=== PATIENT | female | born 1955 | race Caucasian/White ===

== ENCOUNTER → 2020-07-10 13:16 | Outpatient (CLI) | payer MEDICARE, SELFPAY ==
--- NOTE | ~2020-07-10 | MM_ITS ---
EXAMINATION: MM screening mihir BI w vernon HISTORY: Screening TECHNIQUE: Craniocaudal and mediolateral oblique 3-D tomosynthesis images were obtained and synthetic 2-D images were generated. CAD analysis was submitted and interpreted. COMPARISON: Comparison to multiple prior studies sequentially, with oldest reviewed study dated 05/14. BREAST PARENCHYMAL COMPOSITION: The breasts are heterogeneously dense, which may obscure small masses . FINDINGS: There is no evidence of suspicious mass, calcification, or architectural distortion to sugg est malignancy in either breast. There has been no suspicious interval change. IMPRESSION: 1. No mammographic evidence of malignancy. 2. Recommend routine screening mammography in one year. BI-RADS Category 1: Negative Reviewed, dictated and finalized at location A. 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
--- NOTE | ~2020-07-10 | DEXA_ITS ---
Bone Density Report Name: Yajaira Villanueva Age: 65 Sex: Female Ethnicity: White Date of : 1955 Indication: monitoring treatment; height loss; hysterectomy; postmenopausal Referring Provider: SOCO BURDEN Study: Bone densitometry was performed. Exam Date: July 10, 2020 Accession number: [id number] Bone Density: Region BMD T-score Z-score Classification AP Spine (L1-L4) 1.213 1.5 3.4 Normal Femoral Neck (Left) 0.870 0.2 1.8 Normal Total Hip (Left) 0.938 0.0 1.3 Normal Femoral Neck (Right) 0.872 0.2 1.8 Normal Total Hip (Right) 0.935 -0.1 1.3 Normal Total Hip Mean 0.937 -0.1 1.3 Normal World Health Organization criteria for BMD impression classify patients as: Normal (T-score at or above -1.0), Osteopenia (T-score between -1.0 and -2.5), or Osteoporosis (T-score at or below -2.5). 10-year Fracture Risk: FRAX not reported because: All T-scores for Spine Total, Hip Total, Femoral Neck at or above -1.0 Treated for osteoporosis Previous Exams: Region Exam Age BMD T-score BMD Change BMD Change Date g/cm2 vs Baseline vs Previous AP Spine(L1-L4) 07/10/2020 65 1.213 1.5 0.146 0.047 05/18/2017 62 1.166 1.1 0.099* 0.038* 02/23/2014 59 1.128 0.7 0.061* 0.040* 11/07/2010 55 1.088 0.4 0.021 0.021 09/14/2006 51 1.067 0.2 Total Hip(Left) 07/10/2020 65 0.938 0.0 0.067 0.014 05/18/2017 62 0.924 -0.1 0.053* -0.025 02/23/2014 59 0.949 0.1 0.078* 0.068* 11/07/2010 55 0.881 -0.5 0.010 0.010 09/14/2006 51 0.871 -0.6 Total Hip(Right) 07/10/2020 65 0.935 -0.1 0.051 0.010 05/18/2017 62 0.925 -0.1 0.041* -0.012 02/23/2014 59 0.937 0.0 0.053* 0.058* 11/07/2010 55 0.878 -0.5 -0.005 -0.005 09/14/2006 51 0.884 -0.5 *Denotes significance at 95% confidence level, LSC for AP Spine = 0.022 g/cm2, LSC for Total Hip = 0.027 g/cm2 Clinical Information Provided by Patient: Is being treated for osteoporosis Has used the following medications: HRT (i.e. estrogen/hormone therapy), Vitamin D, Calcium, MTV Has the following medical conditions: Hysterectomy Patient maximum height was 64.0 Menopause Age: 47 No regular weight bearing exercise Does not regularly consume dairy products Drinks caffeinated beverages Onset of menses at a
== END ==
PROVIDERS: PCP Internal Medicine; Visit Provider Obstetrics & Gynecology Gynecology
DX: Z12.31 Encounter for screening mammogram for malignant neoplasm of breast (principal); Z78.0 Asymptomatic menopausal state
CPT/HCPCS: 77063; 77067; 77080

== ENCOUNTER → 2021-07-13 10:30 | Outpatient (CLI) | payer MEDICARE, SELFPAY ==
--- NOTE | ~2021-07-13 | MM_ITS ---
EXAMINATION: MM screening mihir BI w vernon HISTORY: Screening TECHNIQUE: Craniocaudal and mediolateral oblique 3-D tomosynthesis images were obtained and synthetic 2-D images were generated. CAD analysis was submitted and interpreted. COMPARISON: Comparison to multiple prior studies sequentially, with oldest reviewed study dated 05/14. BREAST PARENCHYMAL COMPOSITION: The breasts are heterogeneously dense, which may obscure small masses . FINDINGS: Stable benign-appearing mass upper outer quadrant of the left breast. There is no evidence of suspicious mass, calcification, or architectural distortion to suggest malignancy in either breast . There has been no suspicious interval change. IMPRESSION: 1. No mammographic evidence of malignancy. 2. Recommend routine screening mammography in one year. BI-RADS Category 2: Benign finding(s). Reviewed, dictated and finalized at location A. RAL CAR CHAUFFEUR
== END ==
PROVIDERS: PCP Internal Medicine; Visit Provider Obstetrics & Gynecology Gynecology
DX: Z12.31 Encounter for screening mammogram for malignant neoplasm of breast (principal)
CPT/HCPCS: 77063; 77067

== ENCOUNTER 2022-07-12 01:47 | Day surgery (SDC) | payer MEDICARE, SELFPAY ==
[2022-06-24 14:08] VITALS: BMI 33.3
[2022-07-12 08:27] VITALS: BP 127/86; PULSE 86; RESP 20; TEMP 36.5; O2SAT 100; BMI 32.7
[2022-07-12] MEDS: LACTATED RINGERS 1,000 ML 150 ML IV CONT (08:36)
--- NOTE | 2022-07-12 09:01 | P.PNAN_ITS ---
Anes - Initial Pre Proc Eval Procedure: Operation Date: 07/12/22 09:30 Proposed Procedures p Screening Colonoscopy - Silvestre Verdugo MD Date/Time: 07/12/22 09:01 Surgeon: Silvestre Verdugo MD Pre Op Diagnosis: hx colon polyps Patient Data Age: 67 Gender: F Height: 1.6 m Weight: 83.8 kg Last Vital Signs Temp 97.7 F 07/12/22 08:27 Pulse 86 07/12/22 08:27 Resp 20 07/12/22 08:27 BP 127/86 07/12/22 08:27 Pulse Ox 100 07/12/22 08:27 O2 Del Method Room Air 07/12/22 08:27 Allergies Allergy/AdvReac Type Severity Reaction Status Date / Time No Known Allergies Allergy Verified 07/12/22 08:25 Home Medications Medication Instructions Recorded Confirmed Type amlodipine 5 mg tablet 5 mg PO BID 06/24/22 07/12/22 History calcium 600 mg capsule 600 mg PO DAILY 06/24/22 07/12/22 History coQ10 (ubiquinol) 100 mg capsule 50 mg PO HS 06/24/22 07/12/22 History ergocalciferol (vitamin D2) 1,250 1,250 mcg PO DIRECTED 06/24/22 07/12/22 History mcg (50,000 unit) capsule estradiol 1 mg tablet 1 mg PO DAILY 06/24/22 07/12/22 History zwbfyvku-etl-csfpu ac 400 1 tablet PO DAILY 06/24/22 07/12/22 History mcg-calcium carb 500 mg-vit K1 20 mcg tablet potassium chloride 10 mEq 10 meq PO DAILY 06/24/22 07/12/22 History tablet,extended release rosuvastatin 5 mg tablet 5 mg PO HS 06/24/22 07/12/22 History spironolactone 50 mg tablet 50 mg PO DAILY 06/24/22 07/12/22 History Patient hx anesthesia problems: none Family hx anesthesia problems: none Results Review: All pre-operative results and documents have been reviewed as part of the pre- operative evaluation. [facility] Family History Family History (Updated 12/28/18 @ 09:32 by DOCTOR UNKNOWN) Sibling Depression Family history of alcoholism Mother Cerebrovascular accident Hypertension Family history of cardiovascular disease Father Family history of hearing loss Family history of cardiovascular disease Other Family history of irritable bowel syndrome Social History Social History Smoking status: Never smoker Alcohol intake: never Substance use type: does not use Living arrangements: with family Spiritual care concerns: No Anes - Eval Final PreProcedure Day of Procedure 07/12/22 09:01 Patient weight: obese Heart: regular rate and rhythm Lungs: clear to auscultation Airway: Mallampati scale class II Neurological: alert and oriented Last oral intake: >/= 8 hours ASA classification: II Emergent: no Anesthetic plan: proceed Anesthesia type and monitoring: general GIVS and standard monitoring Results Review: All pre-operative results and documents have been reviewed as part of the pre- operative evaluation. Informed Consent: The patient's anesthetic plan and its attendant risks and benefits were discussed with the patient/family/POA. Questions were solicited and answers provided to the satisfaction of the patient/family/POA.
--- NOTE | 2022-07-12 09:14 | PM.HPGS ---
History of Present Illness History of Present Illness Consent: Risks, benefits, and alternatives have been discussed and questions answered. Patient agrees to proceed with procedure. Chief complaint: hx colon polyps Narrative: Yajaira Villanueva is a 67 year old female with colon polyp about 3 years ago Review of Systems Constitutional: Constitutional: Denies headache(s) and Denies weakness Eyes: Eyes: Denies blurry vision ENT: Reports Normal hearing present, Denies headache(s) and Denies neck pain Cardiovascular: Cardiovascular: Denies chest pain and Denies dyspnea Respiratory: Respiratory: Denies dyspnea Gastrointestinal: Gastrointestinal: Reports no additional gastrointestinal complaints Genitourinary: Genitourinary: Denies dysuria Musculoskeletal: Musculoskeletal: Denies neck pain Integumentary/Breasts: Skin/Breast: Denies dry skin Neurologic: Reports Normal hearing present, Denies headache(s) and Denies weakness Psychiatric: Psychiatric: Denies anxiety Endocrine: Endocrine: Denies change in body appearance Hematologic/Lymphatic: Hematologic/Lymphatic: Denies easy bleeding Allergic/Immunologic: Allergic/Immunologic: Denies urticaria PMFSH Past Medical History Medical History (Updated 07/12/22 @ 09:14 by Silvestre Verdugo MD) Adenomatous colon polyp Family History Family History (Updated 12/28/18 @ 09:32 by DOCTOR UNKNOWN) Sibling Depression Family history of alcoholism Mother Cerebrovascular accident Hypertension Family history of cardiovascular disease Father Family history of hearing loss Family history of cardiovascular disease Other Family history of irritable bowel syndrome Social History Social History Smoking status: Never smoker Alcohol intake: never Substance use type: does not use Living arrangements: with family Spiritual care concerns: No Meds Home Medications and Allergies Home Medications Medication Instructions Recorded Confirmed Type amlodipine 5 mg tablet 5 mg PO BID 06/24/22 07/12/22 History calcium 600 mg capsule 600 mg PO DAILY 06/24/22 07/12/22 History coQ10 (ubiquinol) 100 mg capsule 50 mg PO HS 06/24/22 07/12/22 History ergocalciferol (vitamin D2) 1,250 1,250 mcg PO DIRECTED 06/24/22 07/12/22 History mcg (50,000 unit) capsule estradiol 1 mg tablet 1 mg PO DAILY 06/24/22 07/12/22 History ygmhrclp-cge-rpebp ac 400 1 tablet PO DAILY 06/24/22 07/12/22 History mcg-calcium carb 500 mg-vit K1 20 mcg tablet potassium chloride 10 mEq 10 meq PO DAILY 06/24/22 07/12/22 History tablet,extended release rosuvastatin 5 mg tablet 5 mg PO HS 06/24/22 07/12/22 History spironolactone 50 mg tablet 50 mg PO DAILY 06/24/22 07/12/22 History Allergies Allergy/AdvReac Type Severity Reaction Status Date / Time No Known Allergies Allergy Verified 07/12/22 08:25 Vital Signs Vital Signs - 24 hr 07/12/22 08:27 Temperature 97.7 F Pulse Rate 86 Respiratory Rate 20 Blood Pressure 127/86 Pulse Oximetry 100 Oxygen Delivery Room Air Exam Const: General: comfortable and no acute distress HENMT: Face/Nose/Sinus: Normal nares present Eyes: General: appearance normal, both eyes and all related structures Neck: Neck: no JVD Resp: Auscultation: clear to auscultation bilaterally Cardio: Rate: regular rate Rhythm: regular rhythm GI: Inspection: non-distended GI Palp: Yes Soft to palpation Skin: General skin exam: normal color Neuro: General: gait normal Speech: normal speech Extrem: General: normal to inspection Psych: Mental Status: mental status grossly normal Assessment and Plan Assessment and plan (1) Adenomatous colon polyp: Code(s): D12.6 - Benign neoplasm of colon, unspecified Status: Acute Assessment and Plan: colonoscopy
[2022-07-12 09:32] VITALS: BP 106/86; PULSE 62; RESP 17; O2SAT 99
[2022-07-12 09:42] VITALS: BP 105/66; PULSE 61; RESP 15; O2SAT 97
[2022-07-12 09:52] VITALS: BP 121/67; PULSE 61; RESP 16; O2SAT 100
== END 2022-07-12 10:03 | disposition home or self-care (01) ==
PROVIDERS: Visit Provider Internal Medicine Gastroenterology
PROC: 0DJD8ZZ Inspection of Lower Intestinal Tract, Via Natural or Artificial Opening Endoscopic (ICD-10-PCS; CPT 45378; principal; 2022-07-12 09:30)
DX: Z12.11 Encounter for screening for malignant neoplasm of colon (principal); K57.30 Diverticulosis of large intestine without perforation or abscess without bleeding; Z86.010 Personal history of colon polyps; E66.9 Obesity, unspecified; Z68.32 Body mass index [BMI] 32.0-32.9, adult
CPT/HCPCS: G0105; J2704; J7120

== ENCOUNTER → 2022-08-05 15:45 | Outpatient (CLI) | payer MEDICARE, SELFPAY ==
--- NOTE | ~2022-08-05 | MM_ITS ---
EXAMINATION: MM screening mihir BI w vernon HISTORY: Screening mammogram TECHNIQUE: Craniocaudal and mediolateral oblique 3-D tomosynthesis images were obtained and synthetic 2-D images were generated. CAD analysis was submitted and interpreted. COMPARISON: 07/13/2021, 07/10/2020 and 06/18/2019 bilateral screening mammogram examinations BREAST PARENCHYMAL COMPOSITION: The breasts are heterogeneously dense, which may obscure small masses . FINDINGS: Stable low-density circumscribed opacity in the posterior mid to upper outer left breast. S cattered bilateral benign calcifications... There is no evidence of suspicious mass, calcification, o r architectural distortion to suggest malignancy in either breast. There has been no suspicious inter jerri change. IMPRESSION: 1. No mammographic evidence of malignancy. 2. Recommend routine screening mammography in one year. BI-RADS Category 2: Benign finding(s). Reviewed, dictated and finalized at location A. 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
== END ==
PROVIDERS: PCP Obstetrics & Gynecology Gynecology; Visit Provider Obstetrics & Gynecology Gynecology
DX: Z12.31 Encounter for screening mammogram for malignant neoplasm of breast (principal)
CPT/HCPCS: 77063; 77067

== ENCOUNTER 2023-09-28 11:27 | Outpatient (CLI) | payer MEDICARE, SELFPAY ==
--- NOTE | ~2023-09-28 | MM_ITS ---
EXAMINATION: MM screening mihir BI w vernon HISTORY: Screening TECHNIQUE: Craniocaudal and mediolateral oblique 3-D tomosynthesis images were obtained and synthetic 2-D images were generated. CAD analysis was submitted and interpreted. COMPARISON: Comparison to multiple prior studies sequentially, with oldest reviewed study dated 07/10. BREAST PARENCHYMAL COMPOSITION: Dense: The breasts are heterogeneously dense, which may obscure small masses FINDINGS: The left breast is stable without evidence for malignancy. There is a benign mass in the up per outer quadrant of the left breast which is stable. There is a new mass in the upper central aspec t of the right breast posteriorly. IMPRESSION: 1. New right breast mass. 2. Additional mammographic views and possible breast ultrasound are recommended. BI-RADS Category 0: Incomplete: Needs additional imaging evaluation. Reviewed, dictated and finalized at location B. IMPRESSION: 1. New right breast mass. 2. Additional mammographic views and possible breast ultrasound are recommended . BI-RADS Category 0: Incomplete: Needs additional imaging evaluation.
== END 2023-09-28 11:28 ==
LOC: MICIMG 11:28
PROVIDERS: PCP Family Medicine; Visit Provider Obstetrics & Gynecology Gynecology
DX: Z12.31 Encounter for screening mammogram for malignant neoplasm of breast (principal); R92.8 Other abnormal and inconclusive findings on diagnostic imaging of breast
CPT/HCPCS: 77063; 77067

== ENCOUNTER 2023-11-01 08:40 | Outpatient (CLI) | payer MEDICARE, SELFPAY ==
--- NOTE | ~2023-11-01 | MMUS_ITS ---
EXAMINATION: MM diagnostic mihir RT w vernon, US breast RT complete HISTORY: Follow-up right breast asymmetry TECHNIQUE: Additional 3-D tomosynthesis images of the right breast were performed and synthetic 2-D i mages were generated. CAD analysis was submitted and interpreted. High resolution complete right [address] ultrasound was performed. COMPARISON: Comparison to multiple prior studies sequentially, with oldest reviewed study dated 05/13. BREAST PARENCHYMAL COMPOSITION: Not dense: There are scattered areas of fibroglandular density. FINDINGS: MAMMOGRAPHIC FINDINGS: There is a persistent focal asymmetry upper central aspect of the right breast. There are no suspicio us calcifications or architectural distortion. ULTRASOUND: Complete US of all 4 quadrants of the right breast and retroareolar region was reviewed. At 7:00, 6 c m from the nipple, there is a 3 mm cyst. At 8:00, 6 cm from the nipple, there is a 6 mm cyst. At 9:00 , 8 cm from the nipple, there is a oval hypoechoic 8mm mass with low level internal echoes, likely a complicated cyst. At 10:00, 7.5 cm from the nipple, there is a 7 mm mass with low level internal echo es and slightly irregular margins, likely a complicated cyst. At 10:00, 7.5 cm from the nipple, there is a 4 mm cyst. IMPRESSION: 1. Probable benign complicated cyst of the right breast located at 8:00, 6 cm from the nipple, 9:00, 8 cm from the nipple and 10:00, 7.5 cm from the nipple. 2. Recommend 6 month follow-up diagnostic right mammogram and Limited right breast ultrasound BI-RADS CATEGORY 3-PROBABLY BENIGN FINDING Reviewed, dictated and finalized at location A. IMPRESSION: 1. Probable benign complicated cyst of the right breast located at 8:00, 6 cm f rom the nipple, 9:00, 8 cm from the nipple and 10:00, 7.5 cm from the nipple. 2. Recommend 6 month follow-up diagnostic right mammogram and Limited right tim ast ultrasound BI-RADS CATEGORY 3-PROBABLY BENIGN FINDING
== END 2023-11-01 08:41 ==
LOC: MICIMG 08:41
PROVIDERS: PCP Family Medicine; Visit Provider Obstetrics & Gynecology Gynecology
DX: R92.8 Other abnormal and inconclusive findings on diagnostic imaging of breast (principal)
CPT/HCPCS: 76641; 77061; 77065; G0279

== ENCOUNTER 2023-11-15 10:56 | Outpatient (CLI) | payer MEDICARE, SELFPAY ==
--- NOTE | ~2023-11-15 | DEXA_ITS ---
Bone Density Report Name: ALONDRA JACOBSEN Age: 68 Sex: Female Ethnicity: White Date of : 1955 Indication: postmenopausal; screening for osteoporosis; parental hip fracture; height loss; prior fracture; end stage renal disease; hysterectomy; Referring Provider: SOCO BURDEN Study: Bone densitometry was performed. Exam Date: November 15, 2023 Accession number: [id number] Bone Density: Region BMD T-score Z-score Classification AP Spine (L1, L2) 1.078 0.9 2.9 Normal Femoral Neck (Left) 0.821 -0.2 1.6 Normal Total Hip (Left) 0.905 -0.3 1.2 Normal Femoral Neck (Right) 0.858 0.1 1.9 Normal Total Hip (Right) 0.937 0.0 1.5 Normal Total Hip Mean 0.921 -0.2 1.4 Normal World Health Organization criteria for BMD impression classify patients as: Normal (T-score at or above -1.0), Osteopenia (T-score between -1.0 and -2.5), or Osteoporosis (T-score at or below -2.5). 10-year Fracture Risk: FRAX not reported because: All T-scores for Spine Total, Hip Total, Femoral Neck at or above -1.0 Previous Exams: Region Exam Age BMD T-score BMD Change BMD Change Date g/cm2 vs Baseline vs Previous AP Spine(L1, L2) 11/15/2023 68 1.078 0.9 0.117* -0.034 07/10/2020 65 1.112 1.2 0.151 0.032 05/18/2017 62 1.081 0.9 0.120* 0.048* 02/23/2014 59 1.032 0.5 0.072* 0.028* 11/07/2010 55 1.005 0.2 0.044* 0.044* 09/14/2006 51 0.961 -0.2 Total Hip(Left) 11/15/2023 68 0.905 -0.3 0.033* -0.033 07/10/2020 65 0.938 0.0 0.067 0.014 05/18/2017 62 0.924 -0.1 0.053* -0.025 02/23/2014 59 0.949 0.1 0.078* 0.068* 11/07/2010 55 0.881 -0.5 0.010 0.010 09/14/2006 51 0.871 -0.6 Total Hip(Right) 11/15/2023 68 0.937 0.0 0.053* 0.002 07/10/2020 65 0.935 -0.1 0.051 0.010 05/18/2017 62 0.925 -0.1 0.041* -0.012 02/23/2014 59 0.937 0.0 0.053* 0.058* 11/07/2010 55 0.878 -0.5 -0.005 -0.005 09/14/2006 51 0.884 -0.5 *Denotes significance at 95% confidence level, LSC for AP Spine = 0.022 g/cm2, LSC for Total Hip = 0.027 g/cm2 Clinical Information Provided by Patient: Has had a low trauma fracture Parent has had a hip fracture Has used the following medications: HRT (i.e. estrogen/hormone therapy), Vitamin D, Calcium, MTV Has the following medical conditions: Hysterectomy
== END 2023-11-15 10:57 ==
LOC: MICIMG 10:56
PROVIDERS: PCP Family Medicine; Visit Provider Obstetrics & Gynecology Gynecology
DX: Z13.820 Encounter for screening for osteoporosis (principal); Z78.0 Asymptomatic menopausal state
CPT/HCPCS: 77080

== ENCOUNTER 2024-05-03 08:41 | Outpatient (CLI) | payer MEDICARE, SELFPAY ==
--- NOTE | ~2024-05-03 | MMUS_ITS ---
EXAMINATION: MM diagnostic mihir RT w vernon, US breast RT limited HISTORY: Six-month follow-up right breast findings TECHNIQUE: 3-D tomosynthesis images of the right breast were performed and synthetic 2-D images were generated. CAD analysis was submitted and interpreted. High resolution limited right breast ultrasoun d was performed. COMPARISON: 11/01/2023, 09/28/2023, 08/05/2022 BREAST PARENCHYMAL COMPOSITION:Dense: The breasts are heterogeneously dense, which may obscure small masses. FINDINGS: MAMMOGRAPHIC FINDINGS: Stable parenchymal pattern of the breasts. No suspicious mass lesion or distortion seen. No suspiciou s microcalcification. ULTRASOUND: At the 8:00 position right breast, 5 cm from nipple, there is a 4 mm hypoechoic circumscribed mass. A t the 8:00 position right breast, 6 cm from the nipple, there is a 5 mm cyst. At the 9:00 position, 8 cm from nipple, there is a 5 mm parallel, well-circumscribed hypoechoic mass, without shadowing. The re is a 7 mm benign cyst. There is an adjacent 7 mm mildly complex cyst, similar to prior exam. IMPRESSION: Subcentimeter probable benign lesions in the right breast, as detailed above, similar to prior exam. Additional six-month follow-up ultrasound recommended at the time of bilateral mammography. BI-RADS category 3, probably benign findings. Reviewed, dictated and finalized at location . 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 Additional six-month follow-up ultrasound recommended at the time of bilateral mammography. BI-RADS category 3, probably benign findings.
== END 2024-05-03 08:42 | disposition home or self-care (01) ==
PROVIDERS: PCP Obstetrics & Gynecology Gynecology; Visit Provider Obstetrics & Gynecology Gynecology
DX: R92.8 Other abnormal and inconclusive findings on diagnostic imaging of breast (principal)
CPT/HCPCS: 76642; 77061; 77065; G0279

== ENCOUNTER 2024-11-02 08:43 | Outpatient (CLI) | payer MEDICARE, SELFPAY ==
--- NOTE | ~2024-11-02 | MMUS_ITS ---
EXAMINATION: MM diagnostic mihir BI w vernon, US breast RT limited HISTORY: Follow-up right breast masses. TECHNIQUE: Additional 3-D tomosynthesis images of the breasts were performed and synthetic 2-D images were generated. CAD analysis was submitted and interpreted. High resolution Limited right breast ult rasound was performed. COMPARISON: Comparison to multiple prior studies sequentially, with oldest reviewed study dated 07/10. BREAST PARENCHYMAL COMPOSITION: Dense: The breasts are heterogeneously dense, which may obscure small masses FINDINGS: MAMMOGRAPHIC FINDINGS: The breasts are stable. Focal low-density mass upper outer quadrant of the left breast is unchanged f rom prior studies, consistent with benign mass. No new masses, calcifications or architectural distor tion in either breast to suggest malignancy. ULTRASOUND: Limited right breast ultrasound: At 8:00, 6 cm from the nipple there is a 6 mm cyst. At 9:00, 8 cm fr om the nipple there is a 5 mm cyst. At 10:00, 7.5 cm from the nipple there is a 6 mm cyst. There is a n adjacent cluster of microcysts measuring approximately 7 mm in aggregate. No suspicious masses to s uggest malignancy. IMPRESSION: 1. No evidence for malignancy in the right breast. Benign findings. 2. Routine yearly screening mammogram and regular clinical breast examination are recommended. BI-RADS Category 2: Benign finding(s). Reviewed, dictated and finalized at location [] IMPRESSION: 1. No evidence for malignancy in the right breast. Benign findings. 2. Routine yearly screening mammogram and regular clinical breast examination a re recommended. BI-RADS Category 2: Benign finding(s).
== END 2024-11-02 08:44 | disposition home or self-care (01) ==
LOC: MICIMG 08:43
PROVIDERS: PCP Obstetrics & Gynecology Gynecology; Visit Provider Obstetrics & Gynecology Gynecology
DX: N60.01 Solitary cyst of right breast (principal)
CPT/HCPCS: 76642; 77062; 77066; G0279